=== PATIENT | female | born 1990 | race Caucasian/White ===

== ENCOUNTER 2019-11-29 01:55 | Inpatient (IN) | payer BC ==
[2019-11-29] VITALS (87 sets, daily range): BP systolic 83–135; BP diastolic 44–95
[~2019-11-29] VITALS: Ht 175 cm; Wt 64.6 kg
[2019-11-29 08:07] LABS: BASOPHILS % (AUTO) 0 % (0-10); EOSINOPHILS # (AUTO) 0.1 10^3/uL (0.0-0.3); EOSINOPHILS % (AUTO) 1 % (0-10); HEMATOCRIT 29 % (35-52); HEMOGLOBIN 9.3 G/DL (11.5-16.0); LYMPHOCYTES # (AUTO) 1.8 X 10^3 (1.0-4.0); LYMPHOCYTES % (AUTO) 21 % (12-44); MEAN CORPUSCULAR HEMOGLOBIN 26 PG (25-34); MEAN CORPUSCULAR HGB CONC 32 G/DL (32-36); MEAN CORPUSCULAR VOLUME 82 FL (80-99); MEAN PLATELET VOLUME 11.9 FL (7.4-10.4); MONOCYTES # (AUTO) 0.6 X 10^3 (0.0-1.0); MONOCYTES % (AUTO) 7 % (0-12); NEUTROPHILS # (AUTO) 6.4 X 10^3 (1.8-7.8); NEUTROPHILS % (AUTO) 72 % (42-75); PLATELET COUNT 164 10^3/uL (130-400); RED CELL DISTRIBUTION WIDTH 14.8 % (10.0-14.5); WHITE BLOOD COUNT 8.8 10^3/uL (4.3-11.0)
[2019-11-29] MEDS: D5 LR IV SOLUTION 1,000 ML IV SCH ×3 (08:22→18:16)
[2019-11-29] MEDS: OXYTOCIN PRE-MIX DRIP 500 ML IV SCH ×2 (08:23→15:30)
[2019-11-29] MEDS ORDERED: PREN-53 PO (09:17)
[2019-11-29] MEDS ORDERED: fentaNYL 2 mcg/ml BUPIVA 0.125 100 ML ONE (13:21)
[2019-11-29] MEDS ORDERED: fentaNYL INJECTION 100 MCG/2 ML AMP ONE ×2 (14:14→20:42)
[2019-11-29] MEDS ORDERED: LACTATED RINGERS 1,000 ML IV ONE (18:23)
[2019-11-29] MEDS ORDERED: EPIDURAL (fentaNYL 2 MCG/ML BUPIVA 0.125%)100 ML BAG EPI SCH (18:30)
[2019-11-29] MEDS ORDERED: NALOXONE 0.4 MG/ML 1 ML (NARCAN) VIAL IV PRN (18:30)
[2019-11-29] MEDS ORDERED: CATHETER FLUSH 10 ML SYR IV PRN (18:30)
[2019-11-29] MEDS ORDERED: METOCLOPRAMIDE INJ 10 MG/2 ML (REGLAN) ONE (20:29)
[2019-11-29] MEDS ORDERED: CITRIC ACID/SOB CIT (BICITRA) 30 ML UDC ONE (20:29)
[2019-11-29] MEDS ORDERED: metroNIDAZOLE 500MG/100ML IVPB 100 ML ONE (20:30)
[2019-11-29] MEDS ORDERED: FAMOTIDINE 20MG/2ML IV (PEPCID) ONE (20:30)
[2019-11-29] MEDS ORDERED: LIDOCAINE PF 2% 5 ML (XYLOCAINE) VIAL ONE ×2 (20:41→21:02)
[2019-11-29] MEDS ORDERED: KETAMINE/NaCl 50 MG/5 ML SYRINGE (ED ONLY) ONE (20:43)
[2019-11-29] MEDS ORDERED: BUPIVACAINE 0.5% 30 ML (SENSORCAINE) VIAL ONE (21:02)
[2019-11-29] MEDS ORDERED: OXYTOCIN PRE-MIX DRIP 1,000 ML IV ONE (21:02)
[2019-11-29] MEDS ORDERED: DEXAMETHASONE 10 MG/ML (DECADRON) 1 ML VIAL ONE (21:02)
[2019-11-29] MEDS ORDERED: ONDANSETRON 4 MG/2 ML (SDV) Z0FRAN ONE (21:02)
[2019-11-29] MEDS ORDERED: KETOROLAC 30 MG/ML VIAL ONE (21:27)
[2019-11-29] MEDS ORDERED: D5 LR IV SOLUTION 1,000 ML IV SCH (21:33)
[2019-11-29] MEDS ORDERED: OXYTOCIN PRE-MIX DRIP 500 ML IV SCH ×2 (21:33→21:54)
[2019-11-29] MEDS ORDERED: DCS100C PO (21:37)
[2019-11-29] MEDS ORDERED: IBUP-1780 PO (21:37)
[2019-11-29] MEDS ORDERED: OXYC1TAB12 PO (21:37)
--- NOTE | 2019-11-29 21:37 | Discharge Inst-Surgical ---
Discharge Inst-Surgical Depart Medication/Instructions New, Converted or Re-Newed RX: RX on Chart Consults/Follow Up Patient Instructions: as directed Orders & Referrals Follow Up Appt: RTC 1 week for incision check. Call to make follow up appt. for patient in 4 weeks. Wound Care: Remove pascual, apply benzoin and steri strips. Activity Per routine post instructions. Please call in RX to patient pharmacy. Diet as tolerated Patient may shower or tub bathe as desired. Continue home meds Activity Activity as Tolerated: No Diet Discharge Diet: No Restrictions RYAN CALLAHAN MD Nov 29, 2019 21:37
[2019-11-29] MEDS ORDERED: KETOROLAC 30 MG/ML VIAL IVP SCH (21:45)
[2019-11-29] MEDS ORDERED: ONDANSETRON 4 MG/2 ML (SDV) Z0FRAN IVP PRN ×2 (21:45→22:00)
[2019-11-29] MEDS ORDERED: TETANUS,DIPTH,PERTUSS P/F (BOOSTRIX) 0.5 ML VIAL IM ONE (21:45)
[2019-11-29] MEDS ORDERED: oxyCODONE/APAP 10/325MG (PERCOCET 10) TABLET PO PRN (21:45)
[2019-11-29] MEDS ORDERED: MEASLES,MUMPS,RUBELLA 1 EA INJ SC ONE (21:45)
[2019-11-29] MEDS ORDERED: BENZOCAINE/MENTHOL (DERMOPLAST) 60 ML CAN TP PRN (22:00)
--- NOTE | 2019-11-29 22:20 | Diagnostic Imaging Report ---
INDICATION: Post . EXAMINATION: Portable supine abdomen at 9:21 p.m. COMPARISON: There is no prior study available for comparison. FINDINGS: The pelvis and the lower abdomen were included on this exam. There is no radiopaque foreign body identified overlying the lower abdomen or pelvis. There are radiopaque wires along the lateral aspect of the left thigh. There is also a thin radiopaque density overlying the midportion of the right femur. IMPRESSION: There is no radiopaque foreign body identified overlying the lower abdomen or pelvis. Dictated by: Dictated on workstation # [id number]
--- NOTE | 2019-11-29 22:30 | NUR ---
pt oriented to room 307. iv fluids and tubing converted to pump. pitocin running at 125 ml/hr. calf scd's on and running. sprite give to pt and so. will monitor.
--- NOTE | 2019-11-29 23:00 | NUR ---
vss. ff u/0. minimal rubra. pt denies needs/pain at this time. ordering pizza to be delivered.
[2019-11-29] MEDS ORDERED: LACTATED RINGERS 1,000 ML IV PRN (23:18)
[2019-11-29] MEDS ORDERED: ceFAZolin 2 GM IV Premixed 50 ML IV ONE (23:30)
[2019-11-29] MEDS ORDERED: CITRIC ACID/SOB CIT (BICITRA) 30 ML UDC PO ONE (23:30)
[2019-11-29] MEDS ORDERED: FAMOTIDINE 20MG/2ML IV (PEPCID) IV ONE (23:30)
[2019-11-29] MEDS ORDERED: METOCLOPRAMIDE INJ 10 MG/2 ML (REGLAN) IV ONE (23:30)
[2019-11-29] MEDS ORDERED: metroNIDAZOLE 500MG/100ML IVPB 100 ML IV ONE (23:30)
[2019-11-30] MEDS ORDERED: IBUPROFEN 800 MG (MOTRIN) TAB PO SCH
--- NOTE | 2019-11-30 00:34 | NUR ---
Blankets and pillows for so given. eaton given. pt denies pain, denies needs. minimal bleeding. lights dimmed for noc.
--- NOTE | 2019-11-30 01:35 | OPERATIVE REPORT ---
DATE OF SERVICE: 11/29/2019 PREOPERATIVE DIAGNOSIS: Term at 39 weeks' gestation in labor with nonreassuring heart rate pattern and prolonged decel. POSTOPERATIVE DIAGNOSIS: Term at 39 weeks' gestation in labor with nonreassuring heart rate pattern and prolonged decel with nuchal cord. OPERATIVE PROCEDURE: Primary low transverse delivery of a viable male with Apgars of 8 and 9 at 1 and 5 minutes respectively, weight of 7 pounds 13 ounces. Cord blood pH of 7.3 and a time of 2053. OPERATIVE DESCRIPTION: With the patient in the supine position under satisfactory epidural analgesia, she was prepped and draped in the usual fashion for abdominal surgery. Logan catheter had been placed in the urinary bladder during labor and that was left to dependent drainage. The heart rate had returned to the 120-130s by the time we were in the operating room, so we awaited the setup of the epidural to be adequate while we monitor the heart rate every 5 minutes and has remained in the 120-130 plus range. This allowed the baby to resuscitate intrauterine before the . Now under satisfactory epidural analgesia, a Pfannenstiel incision made through skin with scalpel, the patient's abdomen entered in the usual manner. Bladder retractor placed in position, clean scalpel used to make a 4 cm hysterotomy incision transversely across the lower uterine segment that was extended by blunt dissection as well. The umbilical cord prolapsed through the incision fairly promptly. A small amount of amniotic fluid was released. A viable male infant was delivered via the uterine incision in the usual manner. The was bulb suctioned on delivery of the head and nuchal cord was easily released and the delivery completed. The infant was bulb suctioned again as the umbilical cord was doubly clamped and cut. The was passed to the pediatric nurse and to Dr. Cai, who was in attendance for delivery. Cord bloods were obtained. Placenta delivered spontaneously [place]. It was normal with 3-vessel cord. The uterus was exteriorized. The interior wiped clean with a wet laparotomy sponge. Uterine incision closed with a running locked suture of 2-0 Vicryl. Hemostasis was satisfactory, but the uterus was relatively atonic in spite of IV Pitocin. A modified B-Tong suture was placed using 2-0 chromic sutures in a modified manner. This compressed uterus nicely. The uterus was returned to abdominal cavity. All blood clot and debris was removed from the abdominal cavity. Sponge and needle counts correct, hemostasis assured. The anterior parietal peritoneum was closed with running suture of 2-0 Vicryl. The rectus muscles were closed with that suture as well. The rectus fascia was closed with 2-0 Vicryl, subcutaneous tissue was closed with 2-0 Vicryl. At this point, the closure was halted allowing for an intraoperative x-ray as we did not have adequate time for proper instrument counts. At this point, there was no evidence of retained foreign body or instrument in the operative field from the upper abdomen to below the hips. With that confirmed, then the skin was stapled. Logan catheter was removed. The patient was eventually transferred to the recovery room. Estimated blood loss was around 500 mL. The sponge and needle counts had not been taken, but the x-ray was negative. The patient was then transferred to the recovery room and the baby had remained with the patient. Job ID: [id number] DocumentID: [id number] Dictated Date: 11/29/2019 21:31:04 [employer] Date: 11/30/2019 01:34:53 Dictated By: RYAN CALLAHAN MD
[2019-11-30] MEDS: KETOROLAC 30 MG/ML VIAL IVP SCH ×3 (03:08→16:41)
[2019-11-30] MEDS: IBUPROFEN 800 MG (MOTRIN) TAB PO SCH ×4 (07:00→21:05)
--- NOTE | 2019-11-30 08:54 | Progress Note ---
Standard Progress Note Progress Notes/Assess & Plan Date Seen by a Provider: Nov 30, 2019 Time Seen by a Provider: 08:53 Progress/Assessment & Plan This patient is without complaint. She is ambulating, voiding, tolerating oral intake well has good pain control. Vital Signs 11/29/19 23:00 Temp 36.4 Pulse 72 Resp 18 B/P (MAP) 114/64 (81) O2 Delivery Room Air Vital signs are stable. Patient is afebrile. The abdomen is benign. The surgical incision is clean dry and intact. Fundus is firm below the umbilicus and nontender. Extremities show no clubbing or cyanosis. There is no Homans sign. Assessment and plan postoperative day number 1 status post primary delivery doing well. Plan is for routine convalescence care today and possible discharge home tomorrow RYAN CALLAHAN MD Nov 30, 2019 08:54
[2019-11-30 09:00] VITALS: BP 109/67
[2019-11-30] MEDS ORDERED: DOCUSATE SODIUM 100 MG (COLACE) CAP PO SCH ×2 (09:00)
[2019-11-30] MEDS: oxyCODONE/APAP 5/325MG (PERCOCET 5) TABLET PO PRN ×3 (09:42→21:04)
[2019-11-30] MEDS: DOCUSATE SODIUM 100 MG (COLACE) CAP PO SCH ×2 (09:57→21:05)
--- NOTE | 2019-11-30 12:13 | Anesthesia-Regional Post-Op ---
Regional Patient Condition Mental Status: Alert, Oriented x3 Circulation: Same as Pre-Op Headache: Absent Sensation: Full Recovery Motor Block: Absent Post Op Complications Complications None Follow Up Care/Instructions Patient Instructions None needed. Anesthesia/Patient Condition Patient is doing well, no complaints, stable vital signs, no apparent adverse anesthesia problems. No complications reported per nursing. BOOM BAKER CRNA Nov 30, 2019 12:13
[2019-11-30 13:00] VITALS: BP 100/57
[2019-11-30] MEDS: D5 LR IV SOLUTION 1,000 ML IV SCH (16:44)
[2019-11-30 19:20] VITALS: BP 114/56
[2019-12-01] MEDS: IBUPROFEN 800 MG (MOTRIN) TAB PO SCH ×2 (02:51→09:47)
[2019-12-01] MEDS: oxyCODONE/APAP 5/325MG (PERCOCET 5) TABLET PO PRN ×2 (02:51→09:47)
[2019-12-01 02:52] VITALS: BP 100/62
[2019-12-01 09:47] VITALS: BP 119/64
[2019-12-01] MEDS: DOCUSATE SODIUM 100 MG (COLACE) CAP PO SCH (09:47)
--- NOTE | 2019-12-01 09:47 | NUR ---
AM shift assessment completed and vital signs obtained, see interventions. Plan of care reviewed with patient. Patient verbalizes understanding and questions answered. Ariella removed and benzoin and steri-strips applied. Reviewed incisional care with patient and her S.O. Scheduled Colace and Motrin PO along with 2 Percocet PO given at this time. Tdap administered in patient's left deltoid. VIS sheet provided to patient. Patient denies any current needs or concerns at this time.
--- NOTE | 2019-12-01 10:30 | NUR ---
Dr. Gonsales here to see patient. New orders received.
--- NOTE | 2019-12-01 11:23 | NUR ---
Discharge instructions and medications reviewed with patient both written and verbally. Patient verbalizes understanding and denies any current questions or concerns at this time.
--- NOTE | 2019-12-01 13:54 | NUR ---
Patient discharged at this time via wheelchair and accompanied down to awaiting private vehicle by this RN. No signs or symptoms of distress noted.
== END 2019-12-01 13:54 | disposition home or self-care (01) | DRG 788 ==
LOC: LDRP 07:15
PROVIDERS: ADMIT Obstetrics & Gynecology; ATTEND Obstetrics & Gynecology
PROC: 10D00Z1 Extraction of Products of Conception, Low, Open Approach (ICD-10-PCS; principal; 2019-11-29 20:33)
DX: O76 Abnormality in fetal heart rate and rhythm complicating labor and delivery (principal); O69.81X0 Labor and delivery complicated by cord around neck, without compression, not applicable or unspecified; Z3A.39 39 weeks gestation of pregnancy; Z37.0 Single live birth
CPT/HCPCS: 36415; 74018; 85025; 86850; 86900; 86901; 90715; 94664

== ENCOUNTER → 2021-10-05 | Outpatient (CLI) ==
[~2021-10-05] MED LIST: DOCU-239 PO; IBUP-1780 PO; OXYC1TAB12 PO; PREN-53 PO
== END ==
LOC: LABNPT 16:28
PROVIDERS: ATTEND Obstetrics & Gynecology
DX: Z34.82 Encounter for supervision of other normal pregnancy, second trimester (principal)
CPT/HCPCS: 82105